=== PATIENT | female | born 1985 | race African-American/Black ===

== ENCOUNTER → 2017-04-11 | Emergency (ER) | payer BC ==
[~2017-04-11] VITALS: Ht 160 cm; Wt 56.2 kg
[~2017-04-11] MED LIST: DEXAMETHASONE SOD PHOS 10 MG/1 ML VIAL INJ ONE
== END ==
LOC: FSED 23:09
DX: J20.9 Acute bronchitis, unspecified (principal); M79.2 Neuralgia and neuritis, unspecified
CPT/HCPCS: 96372; 99282; J1100